=== PATIENT | male | born 1960 | race Caucasian/White ===

== ENCOUNTER 2025-07-09 07:30 | Day surgery (SDC) | payer MEDICARE, OTHER ==
[2025-07-09] VITALS (13 sets, daily range): BP systolic 96–140; BP diastolic 67–91
[~2025-07-09] VITALS: Ht 184 cm; Wt 104.0 kg
[~2025-07-09 07:30] MED LIST: ASPI325 PO; MAGNESIUM OXID500 MG PO; MUPI2TC TOP; NAPR220 PO; OXYACE5T PO
[2025-07-09] MEDS ORDERED: Ropivacaine 0.5% HCl/Pf 123.125 MG,EPINEPHrine HCL 0.25 MG,Ketorolac Tromethamine 15 MG... INFIL SCH (07:40)
[2025-07-09] MEDS ORDERED: CeFAZolin Sodium 2,000 MG in NS 100 ML IV SCH ×2 (07:40→18:00)
[2025-07-09] MEDS ORDERED: Chlorhexidine Mouth Care 15 ML UDC MT SCH (07:40)
[2025-07-09] MEDS ORDERED: Tranexamic Acid 100 ML IV SCH (07:40)
[2025-07-09] MEDS ORDERED: MULTI-VITAMIN1 EAC2 PO (08:28)
--- NOTE | 2025-07-09 09:16 | NUR ---
History, Chart, Medications and Allergies reviewed before start of procedure. Patient up to Ambulate independently. Gait steady. Pre-Op teaching done. Pt verbalizes understanding. Patient confirms NPO status and agrees with scheduled surgery. Patient reports completing Chlorhexadine shower X6 prior to admission to hospital. Surgical site prepped with 2% Chlorhexidine cloth wipe. Lungs clear T/O to Auscultation. Patient States Post-Procedure ride home has been arranged.
[2025-07-09] MEDS ORDERED: FentaNYL Citrate 50 MCG/ML 2 ML Injection ONE ×2 (09:36→11:24)
[2025-07-09] MEDS ORDERED: Midazolam HCl 1MG / ML 2ML Vial ONE (09:36)
[2025-07-09] MEDS ORDERED: Ondansetron HCl 2 MG / ML 2ML Vial ONE (10:43)
[2025-07-09] MEDS ORDERED: HYDROmorphone HCl/Pf 1MG SYR IV PRN ×3 (10:45→11:45)
[2025-07-09] MEDS ORDERED: FentaNYL Citrate 50 MCG/ML 2 ML Injection IV PRN ×2 (10:45)
[2025-07-09] MEDS ORDERED: Ondansetron HCl 2 MG / ML 2ML Vial IV PRN ×2 (10:45→11:40)
[2025-07-09] MEDS ORDERED: Metoclopramide HCl 5MG / ML 2ML Vial IV PRN (11:35)
[2025-07-09] MEDS ORDERED: Magnesium Hydroxide Conc 10 ML UDC PO PRN (11:35)
[2025-07-09] MEDS ORDERED: Prochlorperazine Edisylate 10 mg Vial IV PRN (11:40)
[2025-07-09] MEDS ORDERED: HYDROmorphone HCl/Pf 1MG SYR ONE (11:52)
[2025-07-09] MEDS ORDERED: FLU VACC TS2025(65UP)/MF59C/PF 45 MCG/0.5 ML SYRINGE IM SCH (12:15)
--- NOTE | 2025-07-09 12:16 | NUR ---
ARRIVAL TO UNIT PT ARRIVED TO UNIT AROUND 1215. A/OX4. DRESSING C/D/I. TOLERATING PO INTAKE. DENIES N/V. CALL LIGHT IN REACH AND EXPLAINED.
[2025-07-09] MEDS ORDERED: Ketorolac Tromethamine 15mg Vial IV SCH (18:00)
[2025-07-09] MEDS ORDERED: ASPI81CH PO (18:06)
--- NOTE | 2025-07-09 18:47 | NUR ---
DISCHARGE PT HAS WORKED w/ THERAPY. PAIN WELL CONTROLLED. EATING, DRINKING, & VOIDING WELL. FEELS COMFORTABLE w/ DC & [facility] POLAR PACK SENT w/ PT. ESCORTED OUT VIA W/C.
== END 2025-07-09 18:48 | disposition home or self-care (01) ==
LOC: ORSCMMR 07:30 → ORD 09:15 → ORSCMMR 09:15 → ORD 10:45 → SURS 12:08 → ORSCMMR 18:48
PROVIDERS: Orthopaedic Surgery
PROC: 0SR90JZ Replacement of Right Hip Joint with Synthetic Substitute, Open Approach (ICD-10-PCS; principal; 2025-07-09 09:15)
DX: M16.11 Unilateral primary osteoarthritis, right hip (principal)
CPT/HCPCS: 72170; 97110; 97162; 97530; A9270; C1776; J0166; J0690; J0735; J1171; J1885; J2250; J2405; J2795; J3010; J7120